=== PATIENT | male | born 1985 | race Caucasian/White ===

== ENCOUNTER 2019-02-21 15:17 | Inpatient (IN) | payer MEDICAID ==
[~2019-02-21] VITALS: Ht 162.6 cm; Wt 81.6 kg
[2019-02-21 16:45] VITALS: BP 146/84
--- NOTE | 2019-02-21 17:41 | HPEPDOC ---
[facility] Medical History & Physical Date of Admission Feb 21, 2019 Date of Service: Feb 21, 2019 History and Physical CHIEF COMPLAINT: Bright red blood per rectum HISTORY OF PRESENT ILLNESS: This is a 33-year-old male with past medical history of cerebral palsy has been noticing bright red blood per rectum for the last 3 days and this morning also noticed but it was more in quantity. He states that initially he was having some diarrhea and was noticing blood mixed with stool. But this morning. There was only luli blood. The patient denies any abdominal pain, any nausea or any vomiting. The patient denies any fevers. The patient states that he has never had a colonoscopy or endoscopy. The patient was seen at an urgent care a few days back when they told him that he has external hemorrhoids. The patient's family states that they have gotten this screening colonoscopies and have no family history of colon cancer. The patient denies being on any medications like aspirin, Plavix or any other anticoagulants. States that the diarrhea was loose, watery around 2-3 episodes a day. He is usually incontinent and he never lost his continence. Denies any travel outside the country. Denies any travel recently outside his PLACE. CAT scan was done at the outside facility where the patient went at [facility] we're the findings were slight thickening of the descending colon, most notably for distal descending colon, raising suspicion for possible left-sided colitis as could be seen and given colitis. The patient's TAISHA and SMA and celiac axes widely patent. Further direct admit surgery was spoken to. As well, but they did not think that the patient needed any intervention. REVIEW OF SYSTEMS: 12 point review of systems negative except as listed in HPI PAST MEDICAL/ SURGICAL HISTORY: Reviewed and the patient has no past medical history SOCIAL HISTORY: Nonsmoker. Does not drink alcohol FAMILY HISTORY: Hypertension ALLERGIES: Please see below. HOME MEDICATIONS: Please see below. PHYSICAL EXAMINATION: VITAL SIGNS: Please see below. GENERAL APPEARANCE: Well-nourished, well-developed, not in apparent distress HEENT: Normocephalic, atraumatic, she has conjunctival pallor, mucous members are moist and pink CARDIOVASCULAR: Regular rate and rhythm. No murmurs, rubs or gallops LUNGS: Clear to bilaterally on room air ABDOMEN: Abdomen is soft , nontender, nondistended with no rebound, no guarding. Bowel sounds are normal. MUSCULOSKELETAL: Range of motion is intact in all 4 extremities NEUROLOGICAL: Cranial nerves II-12 grossly intact. Speech is not dysarthric PSYCHIATRIC: Alert and oriented to person, place and time, able to understand and follow commands LABORATORY DATA: Labs at the outside facility showed WBC of 9.2, hemoglobin of 16.1, platelets of 280. Sodium is 141, potassium is 3.9, chloride is 102, bicarbonate is 23, BUN is 16, creatinine is 0.8 Assessment and plan This is a 33-year-old male who has been admitted currently for lower GI bleed, bright red blood per rectum. 1. Right red blood per rectum. Likely secondary to a rectal bleed or very distal bleed as the patient was having luli blood without any stool mixed lately. The patient might be benefited from flexible sigmoidoscopy. We will do lactic acid to rule out any ischemic colitis. CT scan with IV contrast was done at the outside facility, which shows distal descending colon thickening suspicious for possible left-sided colitis as could be seen with ischemic colitis but TAISHA and SMA with celiac axis was widely patent We will get blood cultures and C. difficile. Also stool for ova and parasites. Patient will be started on Rocephin and Flagyl. Will monitor CBC, BMP every 12 hours and transfuse if hemoglobin trends down. We will Consult surgery for possible sigmoidoscopy. Continue Protonix 40 IV 2. Cerebral palsy: Continue supportive treatment. She is not taking any muscle relaxants or has any contractures. DVT Prophylaxis with SCDs GI prophylaxis with protonIX Expected length of stay greater than 2 midnights. A-FIB/CHADSVASC A-FIB History Current/History of A-Fib/PAF?: No MACARIO WATTS MD Feb 21, 2019 17:41
[2019-02-21] MEDS ORDERED: cefTRIAXone SOD 1 GM in D5W MINI-BAG PLUS 50 ML IV SCH (17:45)
[2019-02-21] MEDS: NS 1,000 ML IV SCH (17:53)
[2019-02-21 18:20] LABS: HEMATOCRIT 41.2 % (42.0-52.0); HEMOGLOBIN 14.3 g/dl (13.5-17.5); MEAN CORPUSCULAR HEMOGLOBIN 29.9 pg (27.0-33.0); MEAN CORPUSCULAR HGB CONC 34.7 g/dl (32.0-36.5); MEAN CORPUSCULAR VOLUME 86.2 fl (80.0-96.0); PLATELET COUNT, AUTOMATED 267 10^3/uL (150-450); RED BLOOD COUNT 4.78 10^6/uL (4.30-6.10); WHITE BLOOD COUNT 8.9 10^3/uL (4.0-10.0)
[2019-02-21 18:43] LABS: BLOOD UREA NITROGEN 14 MG/DL (7-18); CALCIUM LEVEL 8.5 MG/DL (8.5-10.1); CARBON DIOXIDE LEVEL 27 MEQ/L (21-32); CHLORIDE LEVEL 110 MEQ/L (98-107); GLOMERULAR FILTRATION RATE > 60.0 (>60); GLUCOSE, FASTING 82 MG/DL (70-100); POTASSIUM SERUM 3.7 MEQ/L (3.5-5.1); SODIUM LEVEL 142 MEQ/L (136-145)
[2019-02-21] MEDS: metroNIDAZOLE 500 MG in IV 1 EA IV SCH (19:07)
[2019-02-21 22:00] VITALS: BP 130/70
[2019-02-22] MEDS: metroNIDAZOLE 500 MG in IV 1 EA IV SCH ×2 (02:51→11:46)
[2019-02-22 06:00] VITALS: BP 116/76
[2019-02-22 06:35] VITALS: O2SAT 98
[2019-02-22 06:52] LABS: ALBUMIN 3.5 GM/DL (3.2-5.2); ALT/SGPT 35 U/L (12-78); BILIRUBIN,TOTAL 0.6 MG/DL (0.2-1.0); BLOOD UREA NITROGEN 14 MG/DL (7-18); CALCIUM LEVEL 8.1 MG/DL (8.5-10.1); CARBON DIOXIDE LEVEL 26 MEQ/L (21-32); CHLORIDE LEVEL 110 MEQ/L (98-107); CREATININE FOR GFR 0.85 MG/DL (0.70-1.30); GLOMERULAR FILTRATION RATE > 60.0 (>60); GLUCOSE, FASTING 81 MG/DL (70-100); POTASSIUM SERUM 3.9 MEQ/L (3.5-5.1); SODIUM LEVEL 143 MEQ/L (136-145); TOTAL PROTEIN 6.7 GM/DL (6.4-8.2)
[2019-02-22] MEDS: NS 1,000 ML IV SCH (07:05)
[2019-02-22] MEDS ORDERED: PANTOPRAZOLE 40MG INJ (PROTONIX) (C9113) IV SCH (09:00)
[2019-02-22 09:10] LABS: HEMATOCRIT 41.6 % (42.0-52.0); HEMOGLOBIN 14.2 g/dl (13.5-17.5); MEAN CORPUSCULAR HEMOGLOBIN 29.9 pg (27.0-33.0); MEAN CORPUSCULAR HGB CONC 34.1 g/dl (32.0-36.5); MEAN CORPUSCULAR VOLUME 87.6 fl (80.0-96.0); PLATELET COUNT, AUTOMATED 266 10^3/uL (150-450); RED BLOOD COUNT 4.75 10^6/uL (4.30-6.10)
[2019-02-22 09:37] LABS: EOSINOPHILS 1 % (0-3); LYMPHOCYTES 28 % (16-44); MONOCYTES 7 % (0-5); NEUTROPHILS 64 % (28-66); PLATELET ESTIMATE NORMAL (NORMAL)
[2019-02-22 10:00] VITALS: BP 137/91
[2019-02-22] MEDS ORDERED: FLAG500T PO (11:35)
[2019-02-22] MEDS ORDERED: CIPR-249 PO (11:35)
--- NOTE | 2019-02-22 11:39 | DS.PDOC ---
Discharge Summary General Date of Admission Feb 21, 2019 at 16:32 Date of Discharge 02/22/19 Discharge Summary CHIEF COMPLAINT: Bright red blood per rectum This is a 33-year-old male who has been admitted currently for lower GI bleed, bright red blood per rectum. 1. Right red blood per rectum. 2. collitis HISTORY OF PRESENT ILLNESS: This is a 33-year-old male with past medical history of cerebral palsy has been noticing bright red blood per rectum for the last 3 days and this morning also noticed but it was more in quantity. He states that initially he was having some diarrhea and was noticing blood mixed with stool. But this morning. There was only luli blood. The patient denies any abdominal pain, any nausea or any vomiting. The patient denies any fevers. The patient states that he has never had a colonoscopy or endoscopy. The patient was seen at an urgent care a few days back when they told him that he has external hemorrhoids. The patient's family states that they have gotten this screening colonoscopies and have no family history of colon cancer. The patient denies being on any medications like aspirin, Plavix or any other anticoagulants. States that the diarrhea was loose, watery around 2-3 episodes a day. He is usually incontinent and he never lost his continence. Denies any travel outside the country. Denies any travel recently outside his PLACE. CAT scan was done at the outside facility where the patient went at [facility] we're the findings were slight thickening of the descending colon, most notably for distal descending colon, raising suspicion for possible left-sided colitis as could be seen and given colitis. The patient's TAISHA and SMA and celiac axes widely patent. surgery was spoken to. As well, but they did not think that the patient needed any intervention.Likely secondary to a rectal bleed or very distal bleed as the patient was having luli blood without any stool mixed lately. The patient was admitted because of possible intervention with flexible sigmoidoscopy. Lactic acid was done which came out to be normal. The patient's bright red blood per rectum resolved on its own. The hemoglobin was stable in the last 24 hours. The patient had one moment and no blood. I spoke with the family in detail and gave them the details that the patient probably might require an outpatient. 6 flexible sigmoidoscopy and they're okay with that and they want to go home. The patient will be given 5 days of Cipro and 5 days of Flagyl for possible colitis with follow-up with GI and surgery one week for possible flexible sigmoidoscopy. On my examination and as per resident TS and is concerned it did not look like that the patient has any ischemic colitis. The patient probably had viral versus bacterial colitis and currently will be given antibiotics for that. Patient has been advised in case any of the symptoms reoccur. The patient should go to the PCP or to the ER and get himself evaluated possibly with us. Flexible sigmoidoscopy. There was no diarrhea. C. difficile was not been able to send. The patient is stable for discharge. The patient tolerated the morning diet as well as PHYSICAL EXAMINATION: VITAL SIGNS: Please see below. GENERAL APPEARANCE: Well-nourished, well-developed, not in apparent distress HEENT: Normocephalic, atraumatic, she has conjunctival pallor, mucous members are moist and pink CARDIOVASCULAR: Regular rate and rhythm. No murmurs, rubs or gallops LUNGS: Clear to bilaterally on room air ABDOMEN: Abdomen is soft , nontender, nondistended with no rebound, no guarding. Bowel sounds are normal. MUSCULOSKELETAL: Range of motion is intact in all 4 extremities NEUROLOGICAL: Cranial nerves II-12 grossly intact. Speech is not dysarthric PSYCHIATRIC: Alert and oriented to person, place and time, able to understand and follow commands Medications. As per discharge reconciliation medication list Activity as tolerated Diet. Regular Follow-up appointments. PCP in 1 week, surgery in 1 week for flexible s igmoidoscopy , GI in 1 week Condition on discharge. Patient is medically optimized for discharge Discharge disposition: Home Total time spent on this discharge including coordination of care, review of chart documentation and actual contact is around 35 minutes Vital Signs/I&Os Vital Signs Date Time Temp Pulse Resp B/P (MAP) Pulse Ox O2 Delivery O2 Flow Rate FiO2 02/22/19 10:00 98.0 91 17 137/91 (106) 97 Room Air I&O- Last 24 Hours up to 6 AM 02/22/19 05:59 Intake Total 568.75 ml Output Total 0 ml Balance 568.75 ml Laboratory Data Labs 24H Laboratory Tests 2 02/21/19 18:00: Nucleated Red Blood Cells % (auto) 0.0, Anion Gap 5L, Glomerular Filtration Rate > 60.0, Lactic Acid Level 1.1, Calcium Level 8.5 02/22/19 06:02: Nucleated Red Blood Cells % (auto) 0.0, Neutrophils 64, Lymphocytes (Manual) 28, Monocytes (Manual) 7H, Eosinophils (Manual) 1, Platelet Estimate NORMAL 02/22/19 06:04: Anion Gap 7L, Glomerular Filtration Rate > 60.0, Calcium Level 8.1L, Total Bilirubin 0.6, Aspartate Amino Transf (AST/SGOT) 15, Alanine Aminotransferase (ALT/SGPT) 35, Alkaline Phosphatase 65, Total Protein 6.7, Albumin 3.5, Albumin/Globulin Ratio 1.09 CBC/BMP Laboratory Tests 02/21/19 18:00 02/22/19 06:02 02/22/19 06:04 Discharge Medications Scheduled Ciprofloxacin HCl (Cipro) 500 Mg Tablet, 500 MG PO BID Metronidazole (Flagyl) 500 Mg Tablet, 500 MG PO Q8H FOR 10 DAYS Allergies Coded Allergies: No Known Allergies (Unverified , 02/21/19) MACARIO WATTS MD Feb 22, 2019 11:39
[2019-02-22] MEDS ORDERED: INFLUENZA QUADRIVALENT PF VACCINE 0.5ML SYRINGE (90686) IM ONE (14:00)
[2019-02-23] MEDS ORDERED: INFLUENZA QUADRIVALENT PF VACCINE 0.5ML SYRINGE (90686) IM ONE (09:00)
== END 2019-02-22 14:10 | disposition home or self-care (01) | DRG 245 ==
LOC: M MSPAV 16:32
PROVIDERS: ADMIT Family Medicine; ATTEND Internal Medicine
DX: K51.911 Ulcerative colitis, unspecified with rectal bleeding (principal); G80.9 Cerebral palsy, unspecified